=== PATIENT | female | born 1990 | race Caucasian/White ===

== ENCOUNTER 2021-09-13 06:05 | Inpatient (IN) | payer OTHER ==
[2021-09-13] MEDS: ELECTROLYTE-148 SOLN 1,000 ML IV SCH (07:00)
[2021-09-13] MEDS ORDERED: PCA PUMP NR ONE (07:20)
[2021-09-13] MEDS ORDERED: FENTANYL/BUPIVACAINE/NS/PF - PCEA - 50 ML DISP.SYRIN EP ONE ×2 (07:20→13:21)
[2021-09-13 07:39] VITALS: BMI 26.4
[2021-09-13] MEDS ORDERED: NALOXONE HCL 0.4 MG/ML VIAL IVPUSH PRN (08:52)
[2021-09-13] MEDS ORDERED: FENTANYL/BUPIVACAINE/NS/PF - PCEA - 50 ML DISP.SYRIN EP SCH (09:00)
[2021-09-13] MEDS ORDERED: AMPICILLIN SODIUM 2 GM VIAL ONE (09:51)
[2021-09-13] MEDS ORDERED: AMPICILLIN - 2 GM in SODIUM CHLORIDE 100 ML IVPB ONE (10:00)
[2021-09-13 10:47] LABS: URINE BARBITURATES NEGATIVE (NEGATIVE); URINE BENZODIAZEPINES NEGATIVE (NEGATIVE)
[2021-09-13 10:48] LABS: METHADONE, UR NEGATIVE (NEGATIVE); OPIATES, URI NEGATIVE (NEGATIVE); PHENCYCLIDINE,URINE NEGATIVE (NEGATIVE)
[2021-09-13 10:49] LABS: COCAINE, UR NEGATIVE (NEGATIVE); URINE AMPHETAMINES NEGATIVE (NEGATIVE)
[2021-09-13] MEDS ORDERED: OXYTOCIN 20 UNITS in 0.9% NS 20 UNIT/1,000 ML INFUS.BAG IV ONE ×2 (12:54→13:15)
[2021-09-13] MEDS ORDERED: AMPICILLIN SODIUM 1 GM VIAL ONE (13:15)
[2021-09-13] MEDS ORDERED: OXYTOCIN 30 UNITS in 0.9% NS 30 UNIT/500 ML INFUS.BAG IVPB SCH (13:45)
[2021-09-13] MEDS ORDERED: AMPICILLIN - 1 GM in SODIUM CHLORIDE 100 ML IVPB SCH (14:00)
[2021-09-13] MEDS ORDERED: BUPIVACAINE HCL/PF 0.25% (2.5MG/ML) 10 ML VIAL ONE (14:36)
[2021-09-13] MEDS ORDERED: BENZOCAINE 20% 57 GM BOTTLE TP PRN (16:47)
[2021-09-13] MEDS ORDERED: BISACODYL 10 MG SUPP.RECT RC PRN (16:47)
[2021-09-13] MEDS ORDERED: METHYLERGONOVINE MALEATE 0.2 MG/1 ML AMP IM PRN (16:47)
[2021-09-13] MEDS ORDERED: WITCH HAZEL 50% (TUCKS) 40 PAD/JAR PAD TP PRN (16:47)
[2021-09-13] MEDS ORDERED: ACETAMINOPHEN 325 MG TABLET (FP) PO PRN (16:47)
[2021-09-13] MEDS ORDERED: BENZOCAINE 28 GM HEMORRHOIDAL OINTMENT TP PRN (16:47)
[2021-09-13] MEDS ORDERED: OXYTOCIN 20 UNITS in 0.9% NS 20 UNIT/1,000 ML INFUS.BAG IV SCH (17:00)
[2021-09-13 19:34] LABS: SYPHILIS W/ RPR CONF NON-REACTIVE (NONREACTIVE)
[2021-09-13 19:35] LABS: HEPATITIS B SURFACE AG MATERN NON-REACTIVE (NONREACTIVE)
[2021-09-13 20:04] LABS: HIV INTERPRETATION NEGATIVE (NEGATIVE)
[2021-09-13] MEDS: IBUPROFEN 600 MG TABLET (FP) PO PRN (23:19)
[2021-09-14] MEDS: ELECTROLYTE-148 SOLN 1,000 ML IV SCH (08:29)
[2021-09-14] MEDS: IBUPROFEN 600 MG TABLET (FP) PO PRN (08:57)
[2021-09-14 12:50] LABS: BASO % 0.2 % (0-2.0); HEMATOCRIT 31.4 % (32.4-45.2); MCHC 35.1 g/dl (32.0-36.0); MEAN CELL VOLUME 99.9 fl (80-96); MEAN PLT VOLUME 8.9 fl (7.5-11.1); MONO % 7.2 % (3.8-10.2); NEUT % 77.6 % (42.8-82.8); PLATELET COUNT 175 10^3/uL (134-434); RBC 3.15 M/mm3 (3.60-5.2); RDW 13.6 % (11.6-15.6); WHITE BLOOD COUNT 11.3 K/mm3 (4.0-10.0)
[2021-09-14] MEDS ORDERED: SENNOSIDES/DOCUSATE COMBO (SENNA PLUS) TABLET (UD) PO PRN (22:00)
[2021-09-15] MEDS: IBUPROFEN 600 MG TABLET (FP) PO PRN (09:05)
[2021-09-15] MEDS: ELECTROLYTE-148 SOLN 1,000 ML IV SCH (09:07)
[2021-09-15 10:14] VITALS: BP 100/65; PULSE 91; TEMP 97.9
== END 2021-09-15 12:55 | disposition home or self-care (01) | DRG 560 ==
LOC: JDEL 06:05 → JLDR 06:45 → J3W 17:13
PROVIDERS: ADMIT Obstetrics & Gynecology; ATTEND Obstetrics & Gynecology
PROC: 10E0XZZ Delivery of Products of Conception, External Approach (ICD-10-PCS; principal; 2021-09-13)
PROC: 0W8NXZZ Division of Female Perineum, External Approach (ICD-10-PCS; 2021-09-13)
PROC: 0HQ9XZZ Repair Perineum Skin, External Approach (ICD-10-PCS; 2021-09-13)
DX: O34.219 Maternal care for unspecified type scar from previous cesarean delivery (principal); O70.0 First degree perineal laceration during delivery; Z3A.39 39 weeks gestation of pregnancy; Z37.0 Single live birth
CPT/HCPCS: 36415; 59409; 80053; 80307; 85025; 85610; 85730; 86762; 86780; 86850; 86900; 86901; 87340; 87389; C9803; U0003; U0005